=== PATIENT | male | born 1960 | race Caucasian/White ===

== ENCOUNTER 2017-10-17 07:06 | Day surgery (SDC) | payer OTHER ==
[2017-10-16 09:57] VITALS: BMI 38.2
[~2017-10-17 07:06] MED LIST: LACTATED RINGERS 1,000 ML IV SCH
[2017-10-17 07:40] VITALS: TEMP 98
[2017-10-17] MEDS ORDERED: LIDOCAINE 1% 20 ML VIAL (10MG/ML) FOR IV START INTRADERMA ONE (07:41)
[2017-10-17] MEDS ORDERED: PROPOFOL 10 MG/ML 20 ML VIAL IV ONE (08:20)
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
--- NOTE | 2017-10-17 08:48 | P.OP ---
Date of Procedure: 10/17/17 Preoperative Diagnosis: GERD Screening colonoscopy Postoperative Diagnosis: Antral gastritis No evidence of hiatal hernia Diverticulosis Procedure(s) Performed: EGD Colonoscopy Anesthesia: MAC Surgeon: Dariel Daniels Pathology: other (Antrum) Condition: stable Disposition: PACU Description of Procedure: The patient's placed on the endoscopy table in the lateral position. He received IV sedation. The gastroscope was placed oropharynx and passed in the esophagus into the stomach. Scope was then placed through the pylorus. The first and second portion of the duodenum appeared normal. Scope was then brought back the antrum and this was mildly inflamed. A biopsies performed. The scope was unretroflexed and remainder of the stomach appeared normal. There is no significant hiatal hernia. The GE junction was at 40 cm. The distal esophagus appeared minimally inflamed and a biopsies performed. The proximal esophagus appeared normal. Scope was withdrawn for patient. Next digital rectal exam was performed which revealed no abnormalities. The flexible colonoscope was then placed patient anus and passed throughout the entire colon. The ileocecal valve was visualized. The cecum, ascending and transverse colon appeared normal. In the descending; there is mild diverticular changes. Scope was then brought back the rectum and this appeared normal. Scope was withdrawn for patient.
[2017-10-17 08:53] VITALS: RESP 16
[2017-10-17 09:26] VITALS: BP 112/74; PULSE 66
== END 2017-10-17 09:37 | disposition home or self-care (01) ==
LOC: ORWHC2ENDO 07:06
PROVIDERS: ATTEND Surgery
DX: Z12.11 Encounter for screening for malignant neoplasm of colon (principal); K29.60 Other gastritis without bleeding; K21.9 Gastro-esophageal reflux disease without esophagitis; K57.30 Diverticulosis of large intestine without perforation or abscess without bleeding; Z87.891 Personal history of nicotine dependence; Z79.899 Other long term (current) drug therapy
CPT/HCPCS: 88305; 43239; J2704; G0121

== ENCOUNTER → 2024-02-13 | Outpatient (CLI) | payer OTHER ==
--- NOTE | 2024-02-13 09:52 | US ---
EXAMINATION TYPE: US abdomen complete DATE OF EXAM: 02/13/2024 COMPARISON: NONE CLINICAL INDICATION: Male, 63 years old with history of R10.9 UNSPECIFIED ABDOMINAL PAIN; Unspecified abdominal pain. TECHNIQUE: Multiple sonographic images of the abdomen are obtained. 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 Pancreas: Limited visibility. Liver: Appears slightly coarse in echotexture. Gallbladder: Appears anechoic. Evidence for sonographic Sanchez's sign: No CBD: Portions seen appear wnl Spleen: Limited, portions seen appear wnl Right Kidney: No hydronephrosis or masses seen Left Kidney: No hydronephrosis or masses seen Upper IVC:Appears wnl Abd Aorta: Proximal and mid segments appear ectatic. Iliac arteries were obscured. IMPRESSION: 1. Nonspecific pattern to the liver can be seen with diffuse hepatocellular disease or hepatic steato sis.
== END | disposition home or self-care (01) ==
LOC: RADUSWWP 08:47
PROVIDERS: ATTEND Internal Medicine
DX: R10.9 Unspecified abdominal pain
CPT/HCPCS: 76700